=== PATIENT | male | born 1970 | race African-American/Black ===

== ENCOUNTER 2019-01-07 15:57 | Emergency (ER) | payer OTHER ==
[~2019-01-07] VITALS: Ht 170.2 cm; Wt 115.9 kg
[2019-01-07 16:02] VITALS: TEMP 99.7
[2019-01-07 17:16] LABS: BASO % 0.1 % (0.0-2.0); GRAN # 17.8 (1.4-6.5); GRAN % 84.2 % (42.2-75.2); HEMOGLOBIN 14.9 g/dl (13.5-18.0); LYMPH # 1.8 (1.2-3.4); LYMPH % 8.3 % (20.0-51.0); MEAN CELL VOLUME 81 fl (80.0-100.0); MEAN CORPUSCULAR HEMOGLOBIN 27 pg (27.0-31.0); MEAN CORPUSCULAR HGB CONC 33 g/dl (33.0-37.0); MEAN PLATELET VOLUME 10.6 fl (7.4-10.4); MONO # 1.4 (0.1-0.6); MONO % 6.8 % (1.7-9.3); PLATELET COUNT 263 K/mm3 (130-400); RED BLOOD COUNT 5.56 M/mm3 (4.20-5.60); REDCELL DISTRIBUTION WIDTH-CV 13.4 % (11.5-14.5)
[2019-01-07 17:33] LABS: BILIRUBIN,TOTAL 0.5 mg/dL (0.0-1.0); C-REACTIVE PROTEIN 3.9 mg/dL (0.0-0.9); CALCIUM 9.1 mg/dL (8.4-10.2); CREATININE, serum 0.94 (0.66-1.25); POTASSIUM 4.3 mmol/L (3.4-5.0); TOTAL PROTEIN 8.2 gm/dL (6.4-8.2); URIC ACID 5.3 mg/dL (3.5-8.5)
[2019-01-07 17:39] LABS: ERYTHROCYTE SEDIMENTATION RATE 20 mm/hr (0-15)
[2019-01-07] MEDS ORDERED: NORCO 325 MG-51 TAB PO (18:30)
[2019-01-07 19:18] VITALS: BP 121/77; PULSE 69
[2019-01-10] MEDS ORDERED: NORCO 325 MG-51 TAB PO (07:44)
== END 2019-01-07 19:20 | disposition home or self-care (01) ==
LOC: COL.ER 15:57
PROVIDERS: Emergency Medicine
DX: M17.12 Unilateral primary osteoarthritis, left knee (principal); M19.032 Primary osteoarthritis, left wrist; M19.031 Primary osteoarthritis, right wrist
CPT/HCPCS: J1885

== ENCOUNTER 2019-01-08 17:40 | Emergency (ER) | payer OTHER ==
[~2019-01-08] VITALS: Ht 170.2 cm; Wt 115.9 kg
[~2019-01-08 17:40] MED LIST: NORCO 325 MG-51 TAB PO
[2019-01-08 17:47] VITALS: TEMP 99.8
[2019-01-08 18:38] LABS: HEMATOCRIT 46.1 % (42.0-52.0); HEMOGLOBIN 15.2 g/dl (13.5-18.0); MEAN CELL VOLUME 82 fl (80.0-100.0); MEAN CORPUSCULAR HEMOGLOBIN 27 pg (27.0-31.0); MEAN CORPUSCULAR HGB CONC 33 g/dl (33.0-37.0); MEAN PLATELET VOLUME 10.7 fl (7.4-10.4); PLATELET COUNT 257 K/mm3 (130-400); RED BLOOD COUNT 5.64 M/mm3 (4.20-5.60); REDCELL DISTRIBUTION WIDTH-CV 13.5 % (11.5-14.5)
[2019-01-08 19:08] LABS: BAND 1 % (0-10); LYMPHOCYTE 16 % (20.0-51.0); NEUTROPHILS 81 % (42.0-75.2); PLATELET ESTIMATE NORMAL (NORMAL)
[2019-01-08 19:12] LABS: ERYTHROCYTE SEDIMENTATION RATE 40 mm/hr (0-15)
[2019-01-08 20:29] LABS: SYNOVIAL FL. MONONUCLEAR 12.2 % (0-75); SYNOVIAL FLUID RBC 155000 /mm3 (0-0)
[2019-01-08 20:44] LABS: SYNOVIAL FLUID WBC 260903 /mm3 (200-600)
[2019-01-08 21:08] LABS: SYNOVIAL FLUID COLOR PINK
[2019-01-08 21:09] LABS: SYNOVIAL FLUID APPEARANCE OTHER
[2019-01-08 22:15] VITALS: BP 166/95; PULSE 83
[2019-01-10] MEDS ORDERED: NORCO 325 MG-51 TAB PO (07:44)
[2019-01-16] MEDS ORDERED: ROCEPHIN 2GM VIAL21 IJ (07:24)
== END 2019-01-08 22:18 | disposition home or self-care (01) ==
LOC: COL.ER 17:40
PROVIDERS: Emergency Medicine
DX: M00.2 Other streptococcal arthritis and polyarthritis (principal); M25.531 Pain in right wrist
CPT/HCPCS: A4216; J0696; J1885

== ENCOUNTER 2019-01-22 07:30 | Outpatient (RCR) | payer OTHER ==
[2019-01-09 13:02] VITALS: BP 153/103; PULSE 80; TEMP 98.1
--- NOTE | 2019-01-09 14:18 | NUR ---
IVP ATB ADMINISTERED. PT TOLERATED WELL. PT EDUCATED ON S/S OF ALLERGIC/ADVERSE REACTIONS.
--- NOTE | 2019-01-09 14:21 | NUR ---
PT ASSISTED TO EXIT. PT AMBULATED WITHOUT DIFFICULTY.
[2019-01-10 07:40] VITALS: BP 163/89; PULSE 90; TEMP 98
[2019-01-11 07:28] VITALS: BP 157/102; PULSE 87; TEMP 98.4
[2019-01-12 07:30] VITALS: BP 157/98; PULSE 81; TEMP 98.7
[2019-01-13 07:30] VITALS: BP 157/96; PULSE 59; TEMP 98.1
[2019-01-14 07:30] VITALS: BP 165/98; PULSE 71; TEMP 98
[2019-01-15 07:33] VITALS: BP 149/94; PULSE 63; TEMP 98.3
[2019-01-16 07:21] VITALS: BP 147/93; PULSE 63; TEMP 98.2
--- NOTE | 2019-01-16 08:00 | NUR ---
PICC intact left upper arm. With sterile technique left upper arm PICC dressing change done with insertion site cleansed with ChloraPrep 1, chlorhexidine impregnated disc applied, skin prep, StatLock, and Tegaderm applied. No signs or symptoms of IV complications noted. No concerns voiced. Arm wrapped with Mati to protect catheter.
[2019-01-17 07:19] VITALS: BP 151/85; PULSE 82; TEMP 98.3
[2019-01-18 07:41] VITALS: BP 160/97; PULSE 67; TEMP 98.3
[2019-01-19 07:35] VITALS: BP 150/85; PULSE 71; TEMP 98.3
[2019-01-20 07:56] VITALS: BP 153/88; PULSE 66; TEMP 98.5
[2019-01-21 07:59] VITALS: BP 146/89; PULSE 69; TEMP 98.4
[~2019-01-22] VITALS: Ht 170.2 cm; Wt 118.0 kg
[2019-01-22 07:24] VITALS: BP 157/99; PULSE 68; TEMP 98.5
[~2019-01-22 07:30] MED LIST changes: +ROCEPHIN 2GM VIAL21 IJ
[2019-01-22 10:58] VITALS: BP 160/105; PULSE 61; TEMP 98.4
== END 2019-01-22 14:12 | disposition home or self-care (01) ==
LOC: EUO 07:30
DX: Z45.2 Encounter for adjustment and management of vascular access device (principal); A54.42 Gonococcal arthritis
CPT/HCPCS: C1751; J0696

== ENCOUNTER 2022-06-17 08:35 | Emergency (ER) | payer OTHER ==
[~2022-06-17] VITALS: Ht 170.2 cm; Wt 118.2 kg
[2022-06-17 08:44] VITALS: TEMP 98
[2022-06-17 09:13] LABS: COLLECTION METHOD CLEAN CATCH
[2022-06-17 09:18] LABS: BASO # 0.1 K/mm3 (0.0-0.2); BASO % 0.8 % (0.0-2.0); EOS # 0.3 K/mm3 (0.0-0.7); EOS % 5.1 % (0.0-4.0); GRAN # 3.5 K/mm3 (1.4-6.5); GRAN % 55.1 % (42.2-75.2); HEMATOCRIT 44.4 % (42.0-52.0); HEMOGLOBIN 14.5 g/dl (13.5-18.0); LYMPH % 31.4 % (20.0-51.0); MEAN CELL VOLUME 81 fl (80.0-100.0); MEAN CORPUSCULAR HEMOGLOBIN 27 pg (27-31); MEAN CORPUSCULAR HGB CONC 33 g/dl (33.0-37.0); MEAN PLATELET VOLUME 10.1 fl (7.4-10.4); MONO # 0.5 K/mm3 (0.1-0.6); MONO % 7.3 % (1.7-9.3); PLATELET COUNT 235 K/mm3 (130-400); RED BLOOD COUNT 5.47 M/mm3 (4.20-5.60); REDCELL DISTRIBUTION WIDTH-CV 13.2 % (11.5-14.5)
[2022-06-17 09:28] LABS: URINE APPEARANCE Clear (CLEAR/HAZY); URINE BLOOD 2+ (NEGATIVE); URINE COLOR Yellow (YELLOW); URINE GLUCOSE Negative (NEGATIVE); URINE KETONE Negative (NEGATIVE); URINE NITRATE Negative (NEGATIVE); URINE PROTEIN(semi-quant) 1+ (NEGATIVE); URINE UROBILINOGEN 0.2 E.U/dL (0.2-1.0)
[2022-06-17 09:37] LABS: ALANINE AMINOTRANSFERASE 26 U/L (0-55); ALBUMIN 3.7 gm/dL (3.5-5.0); ALKALINE PHOSPHATASE 68 U/L (40-150); ANION GAP 9 mmol/L (7-16); AST,SGOT 18 U/L (5-34); BILIRUBIN,TOTAL 0.6 mg/dL (0.2-1.2); BLOOD UREA NITROGEN 14 mg/dL (8-26); CALCIUM 9.1 mg/dL (8.4-10.2); CARBON DIOXIDE 27 mmol/L (22-29); CHLORIDE 103 mmol/L (98-107); CREATININE, serum 1.12 mg/dL (0.72-1.25); GLUCOSE 107 mg/dL (70-99); POTASSIUM 3.9 mmol/L (3.5-4.5); SODIUM 139 mmol/L (136-145)
[2022-06-17 09:46] LABS: SQUAMOUS EPITHELIAL None Seen /hpf (0-10); URINE BACTERIA None Seen /hpf (NONE SEEN)
[2022-06-17 09:57] LABS: TSH w REFLEX 0.777 uIU/mL (0.350-4.940)
[2022-06-17 09:59] LABS: TROPONIN-I < 0.010 ng/mL (0.00-0.033)
[2022-06-17 10:25] VITALS: BP 175/116; PULSE 75
[2022-06-17] MEDS ORDERED: NORVASC 10MG10 MG PO (10:31)
== END 2022-06-17 10:40 | disposition home or self-care (01) ==
LOC: COL.ER 08:35
PROVIDERS: Emergency Medicine
DX: R55 Syncope and collapse (principal); I10 Essential (primary) hypertension